=== PATIENT | male | born 1945 | race African-American/Black ===

== ENCOUNTER 2016-07-08 12:59 | Observation (INO) | payer BC ==
[~2016-07-08] VITALS: Ht 190.5 cm; Wt 116.6 kg
[~2016-07-08 12:59] MED LIST: FLUV20CA; LEVPEN; LOSARTAN; METFORMIN; PRED5TAB PO
[2016-07-08] MEDS ORDERED: ONDANSETRON HCL 4MG/2ML VIAL IV STA (13:50)
[2016-07-08] MEDS ORDERED: SODIUM CHLORIDE 0.9% 1,000 ML IV ONE (13:50)
[2016-07-08] MEDS ORDERED: KETOROLAC 30MG/ML VIAL IV STA (13:50)
[2016-07-08 14:18] LABS: BASOPHILS % 0.7 % (0.0-2.0); EOSINOPHILS % 1.1 % (0.0-5.0); HEMATOCRIT. 36.3 % (42.0-52.0); LYMPHOCYTES % 11.7 % (20.0-50.0); MEAN CORPUSCULAR HEMOGLOBIN 28.1 pg (28.0-32.0); MEAN PLATELET VOLUME 8.7 fl (7.4-10.4); MONOCYTES % 5.8 % (2.0-8.0); NEUTROPHILS % 80.7 % (40.0-76.0); PLATELET 188 x1000/uL (130-400); RED BLOOD CELL COUNT 4.27 mill/uL (4.7-6.1); WHITE BLOOD COUNT 9.2 x1000/uL (4.5-11.0)
[2016-07-08 14:25] LABS: PROTHROMBIN TIME 10.8 sec
[2016-07-08 14:27] LABS: ALANINE AMINOTRANSFERASE 15 IU/L (13-61); ALBUMIN 3.4 g/dL (3.4-5.0); ANION GAP 14; CALCIUM 8.4 mg/dL (8.5-10.1); CARBON DIOXIDE 27 mEq/L (21-32); CHLORIDE 106 mEq/L (98-107); INDEX HEMOLYSI 1 (1-3); INDEX ICTERIC 1 (1-4); INDEX LIPEMIC 1 (1-3); LIPASE 172 IU/L (73-393); UREA NITROGEN BLOOD 21 mg/dL (7-21)
[2016-07-08 14:29] LABS: eGFR 36 mL/min (>60)
[2016-07-08 15:54] LABS: CLARITY URINE CLEAR (CLEAR); COLOR URINE YELLOW (YELLOW); GLUCOSE URINE NEGATIVE (NEGATIVE); KETONES URINE NEGATIVE (NEGATIVE); LEUKOCYTE ESTERASE URINE NEGATIVE (NEGATIVE); NITRITE URINE NEGATIVE (NEGATIVE); OCCULT BLOOD URINE NEGATIVE (NEGATIVE); PH URINE 5.5 (4.5-8.0); PROTEIN URINE NEGATIVE (NEGATIVE); UROBILINOGEN URINE 0.2 E.U./dL (0.2-1.0)
[2016-07-08] MEDS ORDERED: LOSA1TAB33 PO (17:46)
[2016-07-08 23:00] VITALS: BP 164/89
[2016-07-08] MEDS ORDERED: PRED5TAB48 PO (23:18)
[2016-07-08] MEDS ORDERED: NIFE30TA94 PO (23:20)
[2016-07-08] MEDS ORDERED: GLIM2TAB2 PO (23:21)
[2016-07-08] MEDS ORDERED: ASPI-1035 PO (23:21)
[2016-07-08] MEDS ORDERED: SITA100T6 PO (23:23)
[2016-07-08] MEDS ORDERED: HUMALOG (23:24)
[2016-07-09] VITALS: BP 159/78
[2016-07-09] MEDS ORDERED: DEXTROSE 50% WATER 50ML SYRINGE IV PRN (00:15)
[2016-07-09] MEDS ORDERED: HYDROCODONE/ACETAMINOPHEN 5/325MG TABLET PO PRN (00:15)
[2016-07-09] MEDS ORDERED: ONDANSETRON HCL 4MG/2ML VIAL IV PRN (00:15)
[2016-07-09] MEDS: LOSARTAN POTASSIUM 50 MG TABLET PO SCH ×2 (00:15→08:39)
[2016-07-09] MEDS ORDERED: SODIUM CHLORIDE 0.45% 1,000 ML IV SCH (00:45)
[2016-07-09] MEDS: SODIUM CHL 0.45% + KCL 20MEQ/L 1,000 ML IV SCH ×2 (02:38→17:11)
[2016-07-09 06:00] VITALS: BP 124/87
[2016-07-09] MEDS: BLOOD SUGAR DIAGNOSTIC STRIP TEST SCH ×4 (06:39→20:38)
[2016-07-09] MEDS: PANTOPRAZOLE 40MG DR TABLET PO SCH (06:39)
[2016-07-09] MEDS: INSULIN LISPRO 100 UNITS/ML SUBCUT SCH ×4 (06:40→21:17)
[2016-07-09 08:12] VITALS: BP 137/91
[2016-07-09] MEDS: ASPIRIN 81MG TABLET PO SCH (08:39)
[2016-07-09] MEDS: ENOXAPARIN 30MG/0.3ML SYR SUBCUT SCH (08:39)
[2016-07-09 11:47] LABS: CALCIUM 8.2 mg/dL (8.5-10.1)
[2016-07-09] MEDS: PREDNISONE 5MG TABLET PO SCH (11:49)
[2016-07-09 12:00] VITALS: BP 139/72
[2016-07-09 16:54] VITALS: BP 148/77
[2016-07-09] MEDS ORDERED: NON FORMULARY PATIENT HOME MED EA XX SCH (18:00)
[2016-07-09 20:00] VITALS: BP 159/88
[2016-07-09] MEDS: NIFEDIPINE XL 30MG TAB PO SCH (21:15)
[2016-07-10] VITALS: BP 149/83
[2016-07-10 04:00] VITALS: BP 115/57
[2016-07-10] MEDS: PANTOPRAZOLE 40MG DR TABLET PO SCH (06:11)
[2016-07-10] MEDS: BLOOD SUGAR DIAGNOSTIC STRIP TEST SCH ×3 (06:11→17:53)
[2016-07-10 07:10] LABS: BASOPHILS % 0.2 % (0.0-2.0); EOSINOPHILS % 2.1 % (0.0-5.0); HEMATOCRIT. 34.5 % (42.0-52.0); HEMOGLOBIN. 11.5 g/dL (14.0-18.0); LYMPHOCYTES % 25.7 % (20.0-50.0); MEAN CORPUSCULAR HEMOGLOBIN 28.3 pg (28.0-32.0); MEAN CORPUSCULAR HGB CONC 33.5 g/dL (31.0-37.0); MEAN CORPUSCULAR VOLUME 84.7 fL (80.0-94.0); MEAN PLATELET VOLUME 8.5 fl (7.4-10.4); MONOCYTES % 6.3 % (2.0-8.0); NEUTROPHILS % 65.7 % (40.0-76.0); PLATELET 224 x1000/uL (130-400); RED BLOOD CELL COUNT 4.08 mill/uL (4.7-6.1); RED CELL DISTRIBUTION WIDTH 13.7 % (11.6-14.6)
[2016-07-10 07:38] LABS: CALCIUM 8.3 mg/dL (8.5-10.1); TROPONIN I 0.02 ng/mL (0.00-0.04)
[2016-07-10] MEDS: INSULIN LISPRO 100 UNITS/ML SUBCUT SCH ×3 (07:38→18:11)
[2016-07-10 07:43] LABS: THYROID STIMULATING HORMONE 1.8 uIU/mL (0.36-3.74)
[2016-07-10 08:00] VITALS: BP 160/97
[2016-07-10] MEDS: ASPIRIN 81MG TABLET PO SCH (08:25)
[2016-07-10] MEDS: NIFEDIPINE XL 30MG TAB PO SCH (08:26)
[2016-07-10] MEDS: ENOXAPARIN 30MG/0.3ML SYR SUBCUT SCH (08:33)
[2016-07-10] MEDS: PREDNISONE 5MG TABLET PO SCH (08:33)
[2016-07-10] MEDS ORDERED: LOSARTAN POTASSIUM 25 MG TABLET PO ONE (09:00)
[2016-07-10] MEDS ORDERED: LOSARTAN POTASSIUM 25 MG TABLET PO SCH (09:00)
[2016-07-10] MEDS ORDERED: HYDROCHLOROTHIAZIDE 12.5MG CAPSULE PO SCH (09:00)
[2016-07-10 11:43] VITALS: BP 141/89
[2016-07-10 12:09] VITALS: BP 141/89
[2016-07-10 16:07] VITALS: BP 137/82
== END 2016-07-10 19:45 | disposition home or self-care (01) ==
LOC: ER 15:14 → 8WST 18:13 → INTOOBSV 18:13
PROVIDERS: ADMIT Internal Medicine; ATTEND Internal Medicine
DX: E86.0 Dehydration (principal); R11.0 Nausea; E86.1 Hypovolemia; I10 Essential (primary) hypertension; E11.9 Type 2 diabetes mellitus without complications; E78.5 Hyperlipidemia, unspecified; D86.9 Sarcoidosis, unspecified; N17.9 Acute kidney failure, unspecified
CPT/HCPCS: 36415; 74176; 76770; 80048; 80053; 81003; 82962; 83690; 84443; 84484; 85025; 85610; 93005; 96361; 96372; 96374; 96375; 99285; G0378; J1650; J1815; J1885; J2405; J3480; J7030; J7512

== ENCOUNTER 2019-03-18 12:19 | Inpatient (IN) | payer BC ==
[~2019-03-18] VITALS: Ht 190.5 cm; Wt 80.8 kg
[~2019-03-18 12:19] MED LIST changes: +ASPI-1497 PO; -FLUV20CA; +GLIM2TAB30 PO; +HUMALOG; -LEVPEN; -LOSARTAN; -METFORMIN; +NIFE30TA94 PO; -PRED5TAB PO; +PRED5TAB48 PO; +SITA100T11 PO
[2019-03-18 13:17] LABS: CHLORIDE 110 mEq/L (98-107)
[2019-03-18 13:18] LABS: BASOPHILS % 0.5 % (0.0-2.0); EOSINOPHILS % 0.3 % (0.0-5.0); HEMATOCRIT. 37.9 % (42.0-52.0); HEMOGLOBIN. 12.5 g/dL (14.0-18.0); LYMPHOCYTES % 8.5 % (20.0-50.0); MEAN CORPUSCULAR HEMOGLOBIN 28.4 pg (28.0-32.0); MEAN CORPUSCULAR VOLUME 86.1 fL (80.0-94.0); MEAN PLATELET VOLUME 9.2 fl (7.4-10.4); MONOCYTES % 3.9 % (2.0-8.0); NEUTROPHILS % 86.8 % (40.0-76.0); PLATELET 212 x1000/uL (130-400); RED BLOOD CELL COUNT 4.41 mill/uL (4.7-6.1); RED CELL DISTRIBUTION WIDTH 14.5 % (11.6-14.6)
[2019-03-18 13:20] LABS: ETHANOL BLOOD < 10 mg/dL
[2019-03-18 13:24] LABS: LDL CHOLESTEROL 110 mg/dL (5-100)
[2019-03-18 13:27] LABS: INR 1.1
[2019-03-18] MEDS ORDERED: CLOPIDOGREL 75MG TABLET PO SCH (15:00)
[2019-03-18] MEDS ORDERED: CLONIDINE 0.1MG TABLET PO PRN (15:45)
[2019-03-18] MEDS ORDERED: HYDROCODONE/ACETAMINOPHEN 5/325MG TABLET PO PRN (15:45)
[2019-03-18] MEDS ORDERED: ONDANSETRON HCL 4MG/2ML INJ IV PRN (15:45)
[2019-03-18] MEDS ORDERED: IPRATROPIUM/ALBUTEROL 0.5-3(2.5)MG/3ML NEB HHN PRN (15:45)
[2019-03-18] MEDS ORDERED: ACETAMINOPHEN 325MG TABLET PO PRN (15:45)
[2019-03-18] MEDS ORDERED: NITROGLYCERIN OINT 1GM/INCH UDPKT TD NR (18:45)
[2019-03-18] MEDS ORDERED: METOPROLOL TARTRATE 25MG TABLET PO NR (19:00)
[2019-03-18 22:31] VITALS: BP 160/80
[2019-03-19] MEDS: ATORVASTATIN CALCIUM 10MG TABLET PO SCH ×2 (00:33→21:50)
[2019-03-19] MEDS: NITROGLYCERIN OINT 1GM/INCH UDPKT TD SCH ×2 (00:33→06:48)
[2019-03-19] MEDS ORDERED: INSU100V3 SUBCUT (01:25)
[2019-03-19 04:00] VITALS: BP_SYST 142; BP_SYST 159; BP_DIAS 83; BP_DIAS 93
[2019-03-19 08:00] VITALS: BP 163/88
[2019-03-19 08:36] LABS: BASOPHILS % 0.9 % (0.0-2.0); EOSINOPHILS % 2.2 % (0.0-5.0); HEMATOCRIT. 34.7 % (42.0-52.0); HEMOGLOBIN. 11.2 g/dL (14.0-18.0); LYMPHOCYTES % 27.4 % (20.0-50.0); MEAN CORPUSCULAR HEMOGLOBIN 27.8 pg (28.0-32.0); MEAN CORPUSCULAR VOLUME 86.1 fL (80.0-94.0); MONOCYTES % 6.6 % (2.0-8.0); NEUTROPHILS % 62.9 % (40.0-76.0); PLATELET 202 x1000/uL (130-400); RED BLOOD CELL COUNT 4.02 mill/uL (4.7-6.1); RED CELL DISTRIBUTION WIDTH 14.1 % (11.6-14.6)
[2019-03-19 08:37] LABS: CHLORIDE 110 mEq/L (98-107)
[2019-03-19 08:49] LABS: CREATINE KINASE 96 IU/L (39-308); LDL CHOLESTEROL 100 mg/dL (5-100)
[2019-03-19 08:50] LABS: HDL CHOLESTEROL 68 mg/dL (40-59)
[2019-03-19] MEDS ORDERED: METOPROLOL TARTRATE 25MG TABLET PO SCH (09:00)
[2019-03-19] MEDS: ENOXAPARIN 30MG/0.3ML SYR SUBCUT SCH ×2 (09:47→21:50)
[2019-03-19] MEDS: ASPIRIN 81MG EC TABLET PO SCH (09:48)
[2019-03-19] MEDS: CLOPIDOGREL 75MG TABLET PO SCH (09:48)
[2019-03-19] MEDS: DOCUSATE SODIUM 100MG CAPSULE PO SCH ×2 (09:57→17:12)
[2019-03-19 12:00] VITALS: BP 144/66
[2019-03-19] MEDS: LOSARTAN POTASSIUM 50 MG TABLET PO SCH (12:42)
[2019-03-19] MEDS ORDERED: DEXTROSE 50% WATER 50ML SYRINGE IV PRN (13:45)
[2019-03-19 16:00] VITALS: BP 139/80
[2019-03-19] MEDS: BLOOD SUGAR DIAGNOSTIC STRIP TEST SCH ×2 (17:45→21:11)
[2019-03-19] MEDS: INSULIN LISPRO 100 UNITS/ML SUBCUT SCH ×2 (18:07→21:52)
[2019-03-19 20:00] VITALS: BP 145/73
[2019-03-19] MEDS: METOPROLOL TARTRATE 50MG TABLET PO SCH (21:50)
[2019-03-20] VITALS: BP 132/75
[2019-03-20] LABS: BG BASE EXCESS -4.3 mmol/L (-2.0-2.0); BG CARBOXYHEMOGLOBIN 0.3 % (0.5-1.5); BG DEOXYHEMOGLOBIN 2.2 % (0.0-5.0); BG FRACTION INSPIRED OXYGEN 32; BG HCO3 ACT 19.3 mmol/L (22.0-26.0); BG METHEMOGLOBIN 0.3 % (0.0-1.5); BG OXYGEN SATURATION 97.8 % (92.0-98.5); BG OXYHEMOGLOBIN 97.2 % (94.0-97.0); BG PCO2 30.8 mmHg (35.0-45.0); BG PH 7.414 (7.350-7.450); BG PO2 113.7 mmHg (75.0-100.0); BG SAMPLE SITE RIGHT RADIAL; BG TOTAL HEMOGLOBIN 11.8 g/dL (12.0-18.0); BG VENT MODE NASAL CANNULA
[2019-03-20 04:00] VITALS: BP 131/78
[2019-03-20] MEDS: BLOOD SUGAR DIAGNOSTIC STRIP TEST SCH ×4 (06:28→20:57)
[2019-03-20] MEDS: INSULIN LISPRO 100 UNITS/ML SUBCUT SCH ×4 (06:33→20:55)
[2019-03-20 08:00] VITALS: BP 143/73
[2019-03-20 08:12] LABS: BASOPHILS % 0.4 % (0.0-2.0); EOSINOPHILS % 1.9 % (0.0-5.0); HEMATOCRIT. 35.1 % (42.0-52.0); HEMOGLOBIN. 11.6 g/dL (14.0-18.0); LYMPHOCYTES % 20.2 % (20.0-50.0); MEAN CORPUSCULAR HEMOGLOBIN 28.3 pg (28.0-32.0); MEAN CORPUSCULAR VOLUME 85.7 fL (80.0-94.0); MONOCYTES % 6.2 % (2.0-8.0); NEUTROPHILS % 71.3 % (40.0-76.0); PLATELET 201 x1000/uL (130-400); RED CELL DISTRIBUTION WIDTH 14.1 % (11.6-14.6)
[2019-03-20 08:53] LABS: CHLORIDE 110 mEq/L (98-107)
[2019-03-20] MEDS: CLOPIDOGREL 75MG TABLET PO SCH (10:03)
[2019-03-20] MEDS: METOPROLOL TARTRATE 50MG TABLET PO SCH ×2 (10:03→20:56)
[2019-03-20] MEDS: DOCUSATE SODIUM 100MG CAPSULE PO SCH ×2 (10:03→17:39)
[2019-03-20] MEDS: LOSARTAN POTASSIUM 50 MG TABLET PO SCH ×2 (10:03→20:56)
[2019-03-20] MEDS: ASPIRIN 81MG EC TABLET PO SCH (10:03)
[2019-03-20] MEDS: ENOXAPARIN 30MG/0.3ML SYR SUBCUT SCH (10:04)
[2019-03-20 12:00] VITALS: BP 122/59
[2019-03-20 16:00] VITALS: BP 122/63
[2019-03-20] MEDS: ATORVASTATIN CALCIUM 20MG TABLET PO SCH (20:57)
[2019-03-20] MEDS: AMLODIPINE 5MG TABLET PO SCH (20:57)
[2019-03-21] VITALS (14 sets, daily range): BP systolic 107–154; BP diastolic 53–83
[2019-03-21] MEDS: SODIUM CHLORIDE 0.45% 1,000 ML IV SCH
[2019-03-21 06:41] LABS: BASOPHILS % 0.6 % (0.0-2.0); EOSINOPHILS % 2.5 % (0.0-5.0); HEMATOCRIT. 36.6 % (42.0-52.0); HEMOGLOBIN. 12.1 g/dL (14.0-18.0); LYMPHOCYTES % 20.7 % (20.0-50.0); MEAN CORPUSCULAR HEMOGLOBIN 28.4 pg (28.0-32.0); MEAN CORPUSCULAR VOLUME 85.7 fL (80.0-94.0); MEAN PLATELET VOLUME 9.2 fl (7.4-10.4); MONOCYTES % 6.5 % (2.0-8.0); NEUTROPHILS % 69.7 % (40.0-76.0); PLATELET 206 x1000/uL (130-400); RED BLOOD CELL COUNT 4.27 mill/uL (4.7-6.1); RED CELL DISTRIBUTION WIDTH 14.2 % (11.6-14.6)
[2019-03-21] MEDS: BLOOD SUGAR DIAGNOSTIC STRIP TEST SCH ×4 (06:58→21:29)
[2019-03-21 07:00] LABS: CHLORIDE 109 mEq/L (98-107)
[2019-03-21] MEDS: ASPIRIN 81MG EC TABLET PO SCH (08:00)
[2019-03-21] MEDS: CLOPIDOGREL 75MG TABLET PO SCH (09:00)
[2019-03-21] MEDS: METOPROLOL TARTRATE 50MG TABLET PO SCH ×2 (09:01→21:45)
[2019-03-21] MEDS: DOCUSATE SODIUM 100MG CAPSULE PO SCH ×2 (09:01→18:32)
[2019-03-21] MEDS: LOSARTAN POTASSIUM 50 MG TABLET PO SCH ×2 (09:01→21:44)
[2019-03-21] MEDS: INSULIN LISPRO 100 UNITS/ML SUBCUT SCH ×4 (09:02→21:46)
[2019-03-21] MEDS: AMLODIPINE 5MG TABLET PO SCH ×2 (09:02→21:44)
[2019-03-21] MEDS ORDERED: HEPARIN SODIUM 1,000 UNIT/1ML VIAL IV ONE (09:32)
[2019-03-21] MEDS ORDERED: NICARDIPINE 100MCG/ML 10ML VIAL (CATH LAB) IV ONE (09:32)
[2019-03-21] MEDS ORDERED: NITROGLYCERIN 50MCG/ML 10ML VIAL (CATH LAB) IV ONE (09:32)
[2019-03-21] MEDS ORDERED: LIDOCAINE HCL 1% 20ML VIAL (Pyxis) INJ ONE (13:45)
[2019-03-21] MEDS ORDERED: FENTANYL CITRATE/PF 50MCG/ML 2ML VIAL ONE (13:45)
[2019-03-21] MEDS ORDERED: MIDAZOLAM HCL 2 MG/2 ML VIAL ONE (13:45)
[2019-03-21] MEDS ORDERED: IODIXANOL 320MG/ML 100 ML BOTTLE IV ONE ×2 (13:46→15:02)
[2019-03-21] MEDS ORDERED: IOHEXOL-300 100 ML BOTTLE ONE (14:53)
[2019-03-21] MEDS ORDERED: CLOPIDOGREL 75MG TABLET ONE (15:15)
[2019-03-21] MEDS ORDERED: ASPIRIN 325MG EC TABLET PO ONE (15:15)
[2019-03-21] MEDS ORDERED: ATROPINE SULFATE 1MG/10ML SYR IV PRN (15:45)
[2019-03-21] MEDS ORDERED: ACETAMINOPHEN 325MG TABLET PO PRN (15:45)
[2019-03-21] MEDS: ATORVASTATIN CALCIUM 20MG TABLET PO SCH (21:44)
[2019-03-22] VITALS (11 sets, daily range): BP systolic 116–158; BP diastolic 60–90
[2019-03-22] MEDS: SODIUM CHLORIDE 0.45% 1,000 ML IV SCH (00:48)
[2019-03-22] MEDS: BLOOD SUGAR DIAGNOSTIC STRIP TEST SCH ×2 (06:02→11:33)
[2019-03-22 06:20] LABS: BASOPHILS % 0.6 % (0.0-2.0); EOSINOPHILS % 2.9 % (0.0-5.0); HEMATOCRIT. 36.2 % (42.0-52.0); HEMOGLOBIN. 12.1 g/dL (14.0-18.0); LYMPHOCYTES % 12.5 % (20.0-50.0); MEAN CORPUSCULAR HEMOGLOBIN 28.3 pg (28.0-32.0); MEAN CORPUSCULAR VOLUME 84.9 fL (80.0-94.0); MONOCYTES % 6.2 % (2.0-8.0); NEUTROPHILS % 77.8 % (40.0-76.0); PLATELET 209 x1000/uL (130-400); RED BLOOD CELL COUNT 4.26 mill/uL (4.7-6.1); RED CELL DISTRIBUTION WIDTH 14.4 % (11.6-14.6)
[2019-03-22 06:59] LABS: CHLORIDE 108 mEq/L (98-107)
[2019-03-22] MEDS: INSULIN LISPRO 100 UNITS/ML SUBCUT SCH ×2 (08:30→13:08)
[2019-03-22] MEDS: DOCUSATE SODIUM 100MG CAPSULE PO SCH (08:32)
[2019-03-22] MEDS: AMLODIPINE 5MG TABLET PO SCH (08:33)
[2019-03-22] MEDS: METOPROLOL TARTRATE 50MG TABLET PO SCH (08:33)
[2019-03-22] MEDS: LOSARTAN POTASSIUM 50 MG TABLET PO SCH (08:35)
[2019-03-22] MEDS ORDERED: ASPIRIN 325MG TABLET PO SCH (09:00)
[2019-03-22] MEDS ORDERED: CLOPIDOGREL 75MG TABLET PO SCH (09:00)
[2019-03-22] MEDS ORDERED: METO-539 MT (12:26)
[2019-03-22] MEDS ORDERED: CLOP75TA4 MT (12:26)
[2019-03-22] MEDS ORDERED: ATOR20TA MT (12:26)
[2019-03-22] MEDS ORDERED: LOSA50TA3 MT (12:26)
[2019-03-22] MEDS ORDERED: AMLO5TAB4 MT (12:26)
== END 2019-03-22 16:20 | disposition home or self-care (01) | DRG 246 ==
LOC: ER 12:19 → 7WST 14:15 → EDBEDREQ 14:24 → EDBEDREQSVC 14:24 → ENRESERV 21:30 → 3WST 03-21 16:25
PROVIDERS: ADMIT Internal Medicine; ATTEND Internal Medicine
PROC: 4A023N7 Measurement of Cardiac Sampling and Pressure, Left Heart, Percutaneous Approach (ICD-10-PCS; principal; 2019-03-21)
PROC: 027034Z Dilation of Coronary Artery, One Artery with Drug-eluting Intraluminal Device, Percutaneous Approach (ICD-10-PCS; 2019-03-21)
PROC: B211YZZ Fluoroscopy of Multiple Coronary Arteries using Other Contrast (ICD-10-PCS; 2019-03-21)
PROC: B215YZZ Fluoroscopy of Left Heart using Other Contrast (ICD-10-PCS; 2019-03-21)
DX: I21.4 Non-ST elevation (NSTEMI) myocardial infarction (principal); G93.41 Metabolic encephalopathy; R47.01 Aphasia; I13.0 Hypertensive heart and chronic kidney disease with heart failure and stage 1 through stage 4 chronic kidney disease, or unspecified chronic kidney disease; E11.649 Type 2 diabetes mellitus with hypoglycemia without coma; D86.0 Sarcoidosis of lung; I25.5 Ischemic cardiomyopathy; I25.10 Atherosclerotic heart disease of native coronary artery without angina pectoris; I34.0 Nonrheumatic mitral (valve) insufficiency; G90.8 Other disorders of autonomic nervous system; E11.65 Type 2 diabetes mellitus with hyperglycemia; I50.9 Heart failure, unspecified; E11.22 Type 2 diabetes mellitus with diabetic chronic kidney disease; E78.5 Hyperlipidemia, unspecified; N18.9 Chronic kidney disease, unspecified; Z79.82 Long term (current) use of aspirin; Z79.02 Long term (current) use of antithrombotics/antiplatelets; Z79.52 Long term (current) use of systemic steroids; Z86.73 Personal history of transient ischemic attack (TIA), and cerebral infarction without residual deficits; Z79.899 Other long term (current) drug therapy; Z79.4 Long term (current) use of insulin; Z90.49 Acquired absence of other specified parts of digestive tract
CPT/HCPCS: 36415; 36600; 70551; 71045; 80048; 80053; 80061; 80320; 82140; 82375; 82550; 82805; 82962; 83036; 83721; 83735; 84484; 85025; 85347; 92928; 93005; 93306; 93458; 93880; 97162; 97164; 97530; 99291; C1760; C1769; C1874; C1887; C1893; J1644; J1650; J1815; J2250; J3010; J3490; Q9967; G0480

== ENCOUNTER 2019-06-19 14:31 | Inpatient (IN) | payer BC ==
[~2019-06-19] VITALS: Ht 188 cm; Wt 108.6 kg
[~2019-06-19 14:31] MED LIST changes: +AMLO5TAB4 MT; +ATOR20TA MT; +CLOP75TA4 MT; -GLIM2TAB30 PO; -HUMALOG; +INSU100V3 SUBCUT; +LOSA50TA3 MT; +METO-539 MT
[2019-06-19] MEDS ORDERED: CALCIUM GLUCONATE 100MG/ML 10ML VIAL IV ONE (14:45)
[2019-06-19] MEDS ORDERED: MAGNESIUM 2 G PREMIX 50 ML IV ONE (14:45)
[2019-06-19] MEDS ORDERED: ADENOSINE 3 MG/ML 2ML VIAL IV ONE (15:07)
[2019-06-19 15:26] LABS: BASOPHILS % 0.4 % (0.0-2.0); CHLORIDE 114 mEq/L (98-107); EOSINOPHILS % 0.3 % (0.0-5.0); LYMPHOCYTES % 14.7 % (20.0-50.0); MEAN CORPUSCULAR HEMOGLOBIN 28.7 pg (28.0-32.0); MEAN CORPUSCULAR VOLUME 89.4 fL (80.0-94.0); MEAN PLATELET VOLUME 9.6 fl (7.4-10.4); MONOCYTES % 4.9 % (2.0-8.0); NEUTROPHILS % 79.7 % (40.0-76.0); PLATELET 201 x1000/uL (130-400); RED BLOOD CELL COUNT 2.24 mill/uL (4.7-6.1); RED CELL DISTRIBUTION WIDTH 14.7 % (11.6-14.6)
[2019-06-19] MEDS ORDERED: METOPROLOL TARTRATE 5MG/5ML VIAL IV ONE (15:30)
[2019-06-19] MEDS ORDERED: SODIUM CHLORIDE 0.9% 250 ML IV ONE (15:30)
[2019-06-19 15:33] LABS: INR 1.1; PARTIAL THROMBOPLASTIN TIME 21.5 sec (23.4-31.0); PROTHROMBIN TIME 11.8 sec (9.6-11.0)
[2019-06-19] MEDS ORDERED: VANCOMYCIN 1 G PREMIX 200 ML IV SCH (15:45)
[2019-06-19] MEDS ORDERED: PIPERACILLIN/TAZOBACTAM 3.375GM/50ML PREMIX IV ONE (15:45)
[2019-06-19 15:46] LABS: HEMOGLOBIN. 6.4 g/dL (14.0-18.0)
[2019-06-19 15:47] LABS: HEMATOCRIT. 20.1 % (42.0-52.0)
[2019-06-19] MEDS ORDERED: METOPROLOL TARTRATE 50MG TABLET PO ONE (16:00)
[2019-06-19] MEDS: PIPERACILLIN/TAZ 3.375G PREMIX 50 ML IV NR ×2 (16:13→16:43)
[2019-06-19] MEDS ORDERED: NOREPINEPHRINE 4MG/250ML PMX 250 ML IV ONE (17:43)
[2019-06-19] MEDS ORDERED: ESMOLOL 2500MG PREMIX 250 ML IV ONE ×2 (18:15→18:30)
[2019-06-19] MEDS ORDERED: NOREPINEPHRINE 4 MG in DEXT 5% WATER 246 ML IV ONE (18:15)
[2019-06-19] MEDS ORDERED: IOHEXOL-350 100 ML BOTTLE ONE (19:26)
[2019-06-19] MEDS ORDERED: ONDANSETRON HCL 4MG/2ML INJ IV PRN (20:54)
[2019-06-19 21:04] LABS: CLARITY URINE CLEAR (CLEAR); COLOR URINE YELLOW (YELLOW); KETONES URINE 1+ (NEGATIVE); LEUKOCYTE ESTERASE URINE NEGATIVE (NEGATIVE); NITRITE URINE NEGATIVE (NEGATIVE); OCCULT BLOOD URINE NEGATIVE (NEGATIVE); PROTEIN URINE NEGATIVE (NEGATIVE); SPECIFIC GRAVITY URINE 1.048 (1.005-1.030); UROBILINOGEN URINE 0.2 E.U./dL (0.2-1.0)
[2019-06-19 22:45] VITALS: BP 96/59
[2019-06-19 23:00] VITALS: BP 92/57
[2019-06-19 23:15] VITALS: BP 83/52
[2019-06-19] MEDS ORDERED: DEXTROSE 50% WATER 50ML SYRINGE IV PRN (23:15)
[2019-06-19 23:30] VITALS: BP 104/57
[2019-06-19] MEDS ORDERED: NOREPINEPHRINE 32 MG in DEXT 5% WATER 468 ML IV PRN (23:30)
[2019-06-19 23:45] VITALS: BP 122/69
[2019-06-19 23:48] VITALS: BP 93/74
[2019-06-20] VITALS (127 sets, daily range): BP systolic 56–144; BP diastolic 29–78
[2019-06-20] MEDS ORDERED: FUROSEMIDE 40MG/4ML VIAL IVP NR
[2019-06-20] MEDS: BLOOD SUGAR DIAGNOSTIC STRIP TEST SCH ×4 (00:33→18:10)
[2019-06-20] MEDS: PANTOPRAZOLE 80 MG in SODIUM CHLORIDE 0.9% 100 ML IV SCH ×2 (00:35→09:34)
[2019-06-20] MEDS: ESMOLOL 2500MG PREMIX 250 ML IV PRN ×4 (00:37→22:17)
[2019-06-20 01:11] LABS: HEMATOCRIT 22.4 % (42.0-52.0); HEMOGLOBIN 7.3 g/dL (14.0-18.0)
[2019-06-20 01:26] LABS: CREATINE KINASE MB FRACTION 264.1 ng/mL (0.5-3.6)
[2019-06-20] MEDS: INSULIN LISPRO 100 UNITS/ML SUBCUT SCH ×6 (05:19→21:47)
[2019-06-20 05:43] LABS: HEMATOCRIT. 26.4 % (42.0-52.0); HEMOGLOBIN. 8.7 g/dL (14.0-18.0); MEAN CORPUSCULAR HEMOGLOBIN 28.9 pg (28.0-32.0); MEAN CORPUSCULAR VOLUME 87.5 fL (80.0-94.0); MEAN PLATELET VOLUME 9.9 fl (7.4-10.4); PLATELET 169 x1000/uL (130-400); RED BLOOD CELL COUNT 3.02 mill/uL (4.7-6.1); RED CELL DISTRIBUTION WIDTH 14.3 % (11.6-14.6)
[2019-06-20 06:34] LABS: CHLORIDE 112 mEq/L (98-107)
[2019-06-20 06:44] LABS: LDL CHOLESTEROL 34 mg/dL (5-100)
[2019-06-20 06:47] LABS: HDL CHOLESTEROL 38 mg/dL (40-59)
[2019-06-20 09:47] LABS: HEMATOCRIT 26.1 % (42.0-52.0); HEMOGLOBIN 8.7 g/dL (14.0-18.0)
[2019-06-20 10:44] LABS: CREATINE KINASE MB FRACTION 489.8 ng/mL (0.5-3.6)
[2019-06-20 12:29] LABS: PLATELET ESTIMATE NORMAL
[2019-06-20] MEDS ORDERED: ACETAMINOPHEN 325MG TABLET PO PRN (13:45)
[2019-06-20] MEDS ORDERED: ACETAMINOPHEN 650MG SUPP PR PRN (13:45)
[2019-06-20] MEDS ORDERED: DIPHENHYDRAMINE 50MG/ML VIAL IV PRN (13:45)
[2019-06-20 14:01] LABS: BG BASE EXCESS -8.8 mmol/L (-2.0-2.0); BG CARBOXYHEMOGLOBIN 0.3 % (0.5-1.5); BG DEOXYHEMOGLOBIN 1.7 % (0.0-5.0); BG FRACTION INSPIRED OXYGEN 32; BG HCO3 ACT 13.8 mmol/L (22.0-26.0); BG METHEMOGLOBIN 0.3 % (0.0-1.5); BG OXYGEN SATURATION 98.3 % (92.0-98.5); BG OXYHEMOGLOBIN 97.7 % (94.0-97.0); BG PCO2 19.9 mmHg (35.0-45.0); BG PH 7.458 (7.350-7.450); BG PO2 123.4 mmHg (75.0-100.0); BG SAMPLE SITE RIGHT RADIAL; BG VENT MODE NASAL CANNULA
[2019-06-20] MEDS: SODIUM CHLORIDE 0.45% 1,000 ML IV SCH (14:31)
[2019-06-20] MEDS: PIPERACILLIN/TAZOBACTAM 2.25 G in DEXTROSE 5% WATER 50 ML IV SCH ×2 (15:34→21:46)
[2019-06-20] MEDS: PHENYLEPHRINE 40 MG in DEXT 5% WATER 496 ML IV PRN ×2 (15:35→22:38)
[2019-06-20 17:03] LABS: HEMATOCRIT 23.9 % (42.0-52.0)
[2019-06-20 17:16] LABS: D-DIMER 3.63 mg/L FEU (<0.50); INR 1.2; PARTIAL THROMBOPLASTIN TIME 26.3 sec (23.4-31.0); PROTHROMBIN TIME 12.7 sec (9.6-11.0)
[2019-06-20 17:20] LABS: TOTAL IRON BINDING CAPACITY 280 ug/dL (250-450)
[2019-06-20 17:43] LABS: CREATINE KINASE MB FRACTION 378.2 ng/mL (0.5-3.6)
[2019-06-20] MEDS: SUCRALFATE 1 G/10 ML UDC PO SCH ×2 (18:10→21:46)
[2019-06-20] MEDS: MIDODRINE HCL 5MG TABLET PO SCH (18:10)
[2019-06-20] MEDS ORDERED: VANCOMYCIN 500 MG PREMIX 100 ML IV NR (20:00)
[2019-06-20] MEDS ORDERED: NOREPINEPHRINE 32 MG in DEXT 5% WATER 468 ML IV PRN (20:30)
[2019-06-20] MEDS: ALBUMIN HUMAN 25GM/500ML (5%) IV NR ×2 (21:26→21:37)
[2019-06-20] MEDS: PANTOPRAZOLE SODIUM 40 MG/VIAL IV SCH (21:46)
[2019-06-20 22:24] LABS: HEMATOCRIT 22.1 % (42.0-52.0); HEMOGLOBIN 7.4 g/dL (14.0-18.0)
[2019-06-21] VITALS (82 sets, daily range): BP systolic 67–123; BP diastolic 24–65
[2019-06-21] MEDS: PIPERACILLIN/TAZOBACTAM 2.25 G in DEXTROSE 5% WATER 50 ML IV SCH (04:35)
[2019-06-21] MEDS: PHENYLEPHRINE 40 MG in DEXT 5% WATER 246 ML IV PRN ×4 (05:12→22:50)
[2019-06-21 05:35] LABS: BASOPHILS % 0.3 % (0.0-2.0); EOSINOPHILS % 0.7 % (0.0-5.0); HEMATOCRIT. 26.3 % (42.0-52.0); HEMOGLOBIN. 8.9 g/dL (14.0-18.0); LYMPHOCYTES % 8.1 % (20.0-50.0); MEAN CORPUSCULAR HEMOGLOBIN 30.1 pg (28.0-32.0); MEAN PLATELET VOLUME 10.1 fl (7.4-10.4); NEUTROPHILS % 85.9 % (40.0-76.0); PLATELET 132 x1000/uL (130-400); RED BLOOD CELL COUNT 2.96 mill/uL (4.7-6.1); RED CELL DISTRIBUTION WIDTH 14.6 % (11.6-14.6)
[2019-06-21] MEDS: SUCRALFATE 1 G/10 ML UDC PO SCH ×4 (07:50→20:45)
[2019-06-21] MEDS: INSULIN LISPRO 100 UNITS/ML SUBCUT SCH ×4 (08:20→20:52)
[2019-06-21] MEDS: BLOOD SUGAR DIAGNOSTIC STRIP TEST SCH ×4 (08:37→20:45)
[2019-06-21] MEDS ORDERED: METOCLOPRAMIDE HCL 10MG/2ML VIAL IV SCH (09:00)
[2019-06-21] MEDS: MIDODRINE HCL 5MG TABLET PO SCH ×3 (09:54→18:11)
[2019-06-21] MEDS: SODIUM CHLORIDE 0.45% 1,000 ML IV SCH (09:54)
[2019-06-21] MEDS: PANTOPRAZOLE SODIUM 40 MG/VIAL IV SCH ×2 (11:07→20:51)
[2019-06-21] MEDS: VANCOMYCIN 1500MG in DEXTROSE 5% WATER 250ML IV SCH (11:07)
[2019-06-21] MEDS: PIPERACILLIN/TAZOBACTAM 3.375 G in DEXT 5% WATER 100 ML IV SCH ×3 (11:08→23:56)
[2019-06-21 12:02] LABS: BG BASE EXCESS -9.1 mmol/L (-2.0-2.0); BG CARBOXYHEMOGLOBIN 0.3 % (0.5-1.5); BG DEOXYHEMOGLOBIN 5.4 % (0.0-5.0); BG HCO3 ACT 14.9 mmol/L (22.0-26.0); BG METHEMOGLOBIN 0.3 % (0.0-1.5); BG OXYGEN SATURATION 94.6 % (92.0-98.5); BG PCO2 25.8 mmHg (35.0-45.0); BG PH 7.379 (7.350-7.450); BG PO2 77.6 mmHg (75.0-100.0); BG SAMPLE SITE RIGHT BRACHIAL; BG TOTAL HEMOGLOBIN 8.6 g/dL (12.0-18.0); BG VENT MODE ROOM AIR
[2019-06-21] MEDS: MORPHINE SULFATE 2 MG/ML CPJ (NOT FOR IM USE) IV PRN (19:39)
[2019-06-22] VITALS (93 sets, daily range): BP systolic 87–119; BP diastolic 47–73
[2019-06-22] MEDS: MORPHINE SULFATE 2 MG/ML CPJ (NOT FOR IM USE) IV PRN (01:40)
[2019-06-22] MEDS: IPRATROPIUM/ALBUTEROL 0.5-3(2.5)MG/3ML NEB HHN PRN (02:43)
[2019-06-22] MEDS: PIPERACILLIN/TAZOBACTAM 3.375 G in DEXT 5% WATER 100 ML IV SCH ×3 (05:42→18:18)
[2019-06-22] MEDS: SODIUM CHLORIDE 0.45% 1,000 ML IV SCH (05:42)
[2019-06-22] MEDS: PHENYLEPHRINE 40 MG in DEXT 5% WATER 246 ML IV PRN (05:43)
[2019-06-22 06:16] LABS: BASOPHILS % 0.3 % (0.0-2.0); EOSINOPHILS % 2.2 % (0.0-5.0); HEMATOCRIT. 23.5 % (42.0-52.0); LYMPHOCYTES % 9.1 % (20.0-50.0); MEAN CORPUSCULAR HEMOGLOBIN 30.8 pg (28.0-32.0); MEAN PLATELET VOLUME 10.1 fl (7.4-10.4); MONOCYTES % 5.8 % (2.0-8.0); NEUTROPHILS % 82.6 % (40.0-76.0); PLATELET 118 x1000/uL (130-400); RED BLOOD CELL COUNT 2.58 mill/uL (4.7-6.1); RED CELL DISTRIBUTION WIDTH 14.5 % (11.6-14.6)
[2019-06-22] MEDS: SUCRALFATE 1 G/10 ML UDC PO SCH ×4 (07:50→20:49)
[2019-06-22] MEDS: BLOOD SUGAR DIAGNOSTIC STRIP TEST SCH ×4 (07:50→20:33)
[2019-06-22] MEDS: MIDODRINE HCL 5MG TABLET PO SCH ×3 (09:00→18:18)
[2019-06-22] MEDS: PANTOPRAZOLE SODIUM 40 MG/VIAL IV SCH ×2 (09:00→20:49)
[2019-06-22] MEDS: VANCOMYCIN 1500MG in DEXTROSE 5% WATER 250ML IV SCH (09:01)
[2019-06-22] MEDS: INSULIN LISPRO 100 UNITS/ML SUBCUT SCH ×4 (09:02→20:49)
[2019-06-22 16:18] LABS: BG BASE EXCESS -6.2 mmol/L (-2.0-2.0); BG CARBOXYHEMOGLOBIN 0.3 % (0.5-1.5); BG FRACTION INSPIRED OXYGEN 21; BG HCO3 ACT 16.6 mmol/L (22.0-26.0); BG METHEMOGLOBIN 0.1 % (0.0-1.5); BG OXYHEMOGLOBIN 92.6 % (94.0-97.0); BG PH 7.457 (7.350-7.450); BG PO2 63.3 mmHg (75.0-100.0); BG SAMPLE SITE RIGHT RADIAL; BG VENT MODE ROOM AIR
[2019-06-23] VITALS (49 sets, daily range): BP systolic 76–117; BP diastolic 37–75
[2019-06-23] MEDS: PIPERACILLIN/TAZOBACTAM 3.375 G in DEXT 5% WATER 100 ML IV SCH ×5 (00:39→23:16)
[2019-06-23] MEDS: SODIUM CHLORIDE 0.45% 1,000 ML IV SCH ×2 (02:25→20:45)
[2019-06-23 05:53] LABS: BASOPHILS % 0.2 % (0.0-2.0); HEMATOCRIT. 24.5 % (42.0-52.0); HEMOGLOBIN. 8.4 g/dL (14.0-18.0); LYMPHOCYTES % 7.1 % (20.0-50.0); MEAN CORPUSCULAR HEMOGLOBIN 30.5 pg (28.0-32.0); MEAN CORPUSCULAR VOLUME 89.6 fL (80.0-94.0); MEAN PLATELET VOLUME 10.2 fl (7.4-10.4); MONOCYTES % 4.2 % (2.0-8.0); NEUTROPHILS % 87.5 % (40.0-76.0); PLATELET 125 x1000/uL (130-400); RED BLOOD CELL COUNT 2.74 mill/uL (4.7-6.1); RED CELL DISTRIBUTION WIDTH 14.6 % (11.6-14.6)
[2019-06-23] MEDS: BLOOD SUGAR DIAGNOSTIC STRIP TEST SCH ×4 (07:50→20:30)
[2019-06-23] MEDS: INSULIN LISPRO 100 UNITS/ML SUBCUT SCH ×4 (08:10→20:29)
[2019-06-23] MEDS: VANCOMYCIN 1500MG in DEXTROSE 5% WATER 250ML IV SCH (08:10)
[2019-06-23] MEDS: SUCRALFATE 1 G/10 ML UDC PO SCH ×4 (08:11→20:29)
[2019-06-23] MEDS: PANTOPRAZOLE SODIUM 40 MG/VIAL IV SCH ×2 (08:11→20:30)
[2019-06-23] MEDS: MIDODRINE HCL 5MG TABLET PO SCH ×3 (08:11→18:08)
[2019-06-23] MEDS: CARVEDILOL 3.125 MG TABLET PO SCH ×2 (09:44→20:30)
[2019-06-23] MEDS: CLOPIDOGREL 75MG TABLET PO SCH (09:44)
[2019-06-23] MEDS: MORPHINE SULFATE 2 MG/ML CPJ (NOT FOR IM USE) IV PRN (23:36)
[2019-06-24] VITALS (13 sets, daily range): BP systolic 92–111; BP diastolic 47–64
[2019-06-24] MEDS: IPRATROPIUM/ALBUTEROL 0.5-3(2.5)MG/3ML NEB HHN PRN (01:21)
[2019-06-24] MEDS: SUCRALFATE 1 G/10 ML UDC PO SCH ×4 (05:51→22:30)
[2019-06-24] MEDS: PIPERACILLIN/TAZOBACTAM 3.375 G in DEXT 5% WATER 100 ML IV SCH ×3 (05:51→17:32)
[2019-06-24] MEDS: BLOOD SUGAR DIAGNOSTIC STRIP TEST SCH ×4 (05:52→21:00)
[2019-06-24 07:36] LABS: BASOPHILS % 0.4 % (0.0-2.0); EOSINOPHILS % 1.9 % (0.0-5.0); HEMATOCRIT. 23.3 % (42.0-52.0); LYMPHOCYTES % 8.5 % (20.0-50.0); MEAN CORPUSCULAR HEMOGLOBIN 30.8 pg (28.0-32.0); MEAN CORPUSCULAR VOLUME 89.3 fL (80.0-94.0); MEAN PLATELET VOLUME 10.5 fl (7.4-10.4); MONOCYTES % 5.2 % (2.0-8.0); PLATELET 132 x1000/uL (130-400); RED BLOOD CELL COUNT 2.61 mill/uL (4.7-6.1); RED CELL DISTRIBUTION WIDTH 14.3 % (11.6-14.6)
[2019-06-24] MEDS: MIDODRINE HCL 5MG TABLET PO SCH ×4 (09:08→18:56)
[2019-06-24] MEDS: CLOPIDOGREL 75MG TABLET PO SCH (09:08)
[2019-06-24] MEDS: PANTOPRAZOLE SODIUM 40 MG/VIAL IV SCH ×2 (09:09→22:30)
[2019-06-24] MEDS: CARVEDILOL 3.125 MG TABLET PO SCH ×2 (09:09→22:31)
[2019-06-24] MEDS: INSULIN LISPRO 100 UNITS/ML SUBCUT SCH ×4 (09:11→22:35)
[2019-06-24] MEDS ORDERED: FUROSEMIDE 40MG TABLET PO NR (09:30)
[2019-06-24] MEDS: VANCOMYCIN 1500MG in DEXTROSE 5% WATER 250ML IV SCH (10:06)
[2019-06-24] MEDS: SODIUM CHLORIDE 0.45% 1,000 ML IV SCH (17:33)
[2019-06-25] VITALS (11 sets, daily range): BP systolic 83–128; BP diastolic 51–68
[2019-06-25] MEDS: PIPERACILLIN/TAZOBACTAM 3.375 G in DEXT 5% WATER 100 ML IV SCH ×5 (05:22→17:20)
[2019-06-25] MEDS: SUCRALFATE 1 G/10 ML UDC PO SCH ×4 (06:01→21:33)
[2019-06-25] MEDS: BLOOD SUGAR DIAGNOSTIC STRIP TEST SCH ×4 (06:02→21:34)
[2019-06-25] MEDS: INSULIN LISPRO 100 UNITS/ML SUBCUT SCH ×4 (07:36→21:32)
[2019-06-25 07:39] LABS: BASOPHILS % 0.2 % (0.0-2.0); EOSINOPHILS % 1.9 % (0.0-5.0); HEMATOCRIT. 24.2 % (42.0-52.0); HEMOGLOBIN. 8.3 g/dL (14.0-18.0); LYMPHOCYTES % 8.7 % (20.0-50.0); MEAN CORPUSCULAR HEMOGLOBIN 30.9 pg (28.0-32.0); MEAN CORPUSCULAR VOLUME 90.2 fL (80.0-94.0); MEAN PLATELET VOLUME 10.7 fl (7.4-10.4); MONOCYTES % 5.6 % (2.0-8.0); NEUTROPHILS % 83.6 % (40.0-76.0); PLATELET 129 x1000/uL (130-400); RED BLOOD CELL COUNT 2.68 mill/uL (4.7-6.1); RED CELL DISTRIBUTION WIDTH 14.6 % (11.6-14.6)
[2019-06-25] MEDS: VANCOMYCIN 1500MG in DEXTROSE 5% WATER 250ML IV SCH (07:58)
[2019-06-25] MEDS: CLOPIDOGREL 75MG TABLET PO SCH (08:01)
[2019-06-25] MEDS: PANTOPRAZOLE SODIUM 40 MG/VIAL IV SCH ×2 (08:01→21:33)
[2019-06-25] MEDS: FUROSEMIDE 40MG/4ML VIAL IVP SCH (08:01)
[2019-06-25] MEDS: CARVEDILOL 3.125 MG TABLET PO SCH ×2 (08:01→21:33)
[2019-06-25] MEDS: MIDODRINE HCL 5MG TABLET PO SCH ×3 (08:01→17:21)
[2019-06-25] MEDS ORDERED: BISACODYL 5MG TABLET PO PRN (09:00)
[2019-06-25] MEDS ORDERED: SORBITOL 70% SOLN 30ML PO PRN (09:00)
[2019-06-25] MEDS ORDERED: MINERAL OIL ENEMA 133ML PR NR (09:00)
[2019-06-25] MEDS: NYSTATIN 100,000 UNITS/ML 5ML UDC SSW SCH ×2 (11:57→17:20)
[2019-06-25] MEDS: SODIUM CHLORIDE 0.45% 1,000 ML IV SCH (13:29)
[2019-06-25] MEDS: ATORVASTATIN CALCIUM 40MG TABLET PO SCH (21:33)
[2019-06-26] VITALS (12 sets, daily range): BP systolic 95–119; BP diastolic 47–68
[2019-06-26] MEDS: NYSTATIN 100,000 UNITS/ML 5ML UDC SSW SCH ×5 (00:11→23:25)
[2019-06-26] MEDS: PIPERACILLIN/TAZOBACTAM 3.375 G in DEXT 5% WATER 100 ML IV SCH ×5 (00:11→23:25)
[2019-06-26] MEDS: SUCRALFATE 1 G/10 ML UDC PO SCH ×4 (05:43→21:18)
[2019-06-26 06:28] LABS: BASOPHILS % 0.4 % (0.0-2.0); EOSINOPHILS % 2.4 % (0.0-5.0); HEMATOCRIT. 23.3 % (42.0-52.0); HEMOGLOBIN. 7.9 g/dL (14.0-18.0); LYMPHOCYTES % 10.8 % (20.0-50.0); MEAN CORPUSCULAR HEMOGLOBIN 30.3 pg (28.0-32.0); MEAN CORPUSCULAR VOLUME 89.4 fL (80.0-94.0); MEAN PLATELET VOLUME 10.6 fl (7.4-10.4); MONOCYTES % 5.1 % (2.0-8.0); NEUTROPHILS % 81.3 % (40.0-76.0); PLATELET 158 x1000/uL (130-400); RED BLOOD CELL COUNT 2.61 mill/uL (4.7-6.1); RED CELL DISTRIBUTION WIDTH 14.8 % (11.6-14.6)
[2019-06-26] MEDS: BLOOD SUGAR DIAGNOSTIC STRIP TEST SCH ×4 (06:53→21:19)
[2019-06-26] MEDS: CARVEDILOL 3.125 MG TABLET PO SCH ×2 (09:06→21:19)
[2019-06-26] MEDS: CLOPIDOGREL 75MG TABLET PO SCH (09:06)
[2019-06-26] MEDS: PANTOPRAZOLE SODIUM 40 MG/VIAL IV SCH ×2 (09:07→21:18)
[2019-06-26] MEDS: FUROSEMIDE 40MG/4ML VIAL IVP SCH (09:07)
[2019-06-26] MEDS: MIDODRINE HCL 5MG TABLET PO SCH ×3 (09:07→17:14)
[2019-06-26] MEDS: INSULIN LISPRO 100 UNITS/ML SUBCUT SCH ×4 (09:07→21:20)
[2019-06-26] MEDS: VANCOMYCIN 1500MG in DEXTROSE 5% WATER 250ML IV SCH (10:00)
[2019-06-26] MEDS: SODIUM CHLORIDE 0.45% 1,000 ML IV SCH (11:29)
[2019-06-26] MEDS ORDERED: POTASSIUM CHLORIDE 20MEQ TABLET SR PO NR (11:45)
[2019-06-26] MEDS: ATORVASTATIN CALCIUM 40MG TABLET PO SCH (21:18)
[2019-06-27] VITALS (12 sets, daily range): BP systolic 95–134; BP diastolic 51–83
[2019-06-27] MEDS: SODIUM CHLORIDE 0.45% 1,000 ML IV SCH (05:45)
[2019-06-27] MEDS: PIPERACILLIN/TAZOBACTAM 3.375 G in DEXT 5% WATER 100 ML IV SCH ×4 (06:16→23:48)
[2019-06-27] MEDS: SUCRALFATE 1 G/10 ML UDC PO SCH ×4 (06:35→21:31)
[2019-06-27] MEDS: BLOOD SUGAR DIAGNOSTIC STRIP TEST SCH ×4 (06:35→21:31)
[2019-06-27] MEDS: NYSTATIN 100,000 UNITS/ML 5ML UDC SSW SCH ×4 (06:35→23:48)
[2019-06-27 06:44] LABS: BASOPHILS % 0.5 % (0.0-2.0); EOSINOPHILS % 1.8 % (0.0-5.0); HEMOGLOBIN. 8.4 g/dL (14.0-18.0); LYMPHOCYTES % 11.3 % (20.0-50.0); MEAN CORPUSCULAR HEMOGLOBIN 30.2 pg (28.0-32.0); MEAN CORPUSCULAR VOLUME 89.4 fL (80.0-94.0); MEAN PLATELET VOLUME 10.7 fl (7.4-10.4); MONOCYTES % 5.8 % (2.0-8.0); NEUTROPHILS % 80.6 % (40.0-76.0); PLATELET 189 x1000/uL (130-400); RED BLOOD CELL COUNT 2.79 mill/uL (4.7-6.1); RED CELL DISTRIBUTION WIDTH 14.9 % (11.6-14.6)
[2019-06-27] MEDS: CLOPIDOGREL 75MG TABLET PO SCH (08:36)
[2019-06-27] MEDS: MIDODRINE HCL 5MG TABLET PO SCH ×3 (08:36→17:00)
[2019-06-27] MEDS: PANTOPRAZOLE SODIUM 40 MG/VIAL IV SCH ×2 (08:36→21:29)
[2019-06-27] MEDS: FUROSEMIDE 40MG/4ML VIAL IVP SCH (08:36)
[2019-06-27] MEDS: INSULIN LISPRO 100 UNITS/ML SUBCUT SCH ×4 (08:37→21:32)
[2019-06-27] MEDS: CARVEDILOL 3.125 MG TABLET PO SCH ×2 (08:37→21:31)
[2019-06-27] MEDS: VANCOMYCIN 1500MG in DEXTROSE 5% WATER 250ML IV SCH (09:32)
[2019-06-27] MEDS ORDERED: POTASSIUM CHLORIDE 20MEQ TABLET SR PO SCH (10:30)
[2019-06-27] MEDS ORDERED: LORAZEPAM 2MG/ML CPJ IV PRN (16:15)
[2019-06-27] MEDS: ATORVASTATIN CALCIUM 40MG TABLET PO SCH (21:30)
[2019-06-28] VITALS (12 sets, daily range): BP systolic 103–131; BP diastolic 55–72
[2019-06-28] MEDS: SODIUM CHLORIDE 0.45% 1,000 ML IV SCH ×2 (01:50→23:46)
[2019-06-28] MEDS: IPRATROPIUM/ALBUTEROL 0.5-3(2.5)MG/3ML NEB HHN PRN (02:21)
[2019-06-28] MEDS: PIPERACILLIN/TAZOBACTAM 3.375 G in DEXT 5% WATER 100 ML IV SCH ×4 (06:02→23:46)
[2019-06-28] MEDS: SUCRALFATE 1 G/10 ML UDC PO SCH ×4 (06:02→21:07)
[2019-06-28] MEDS: NYSTATIN 100,000 UNITS/ML 5ML UDC SSW SCH ×4 (06:03→23:49)
[2019-06-28] MEDS: BLOOD SUGAR DIAGNOSTIC STRIP TEST SCH ×4 (06:07→21:08)
[2019-06-28 07:14] LABS: BASOPHILS % 0.4 % (0.0-2.0); EOSINOPHILS % 2.7 % (0.0-5.0); HEMATOCRIT. 25.2 % (42.0-52.0); HEMOGLOBIN. 8.5 g/dL (14.0-18.0); LYMPHOCYTES % 9.3 % (20.0-50.0); MEAN CORPUSCULAR HEMOGLOBIN 29.9 pg (28.0-32.0); MEAN CORPUSCULAR VOLUME 88.9 fL (80.0-94.0); MEAN PLATELET VOLUME 10.3 fl (7.4-10.4); MONOCYTES % 7.1 % (2.0-8.0); NEUTROPHILS % 80.5 % (40.0-76.0); PLATELET 217 x1000/uL (130-400); RED BLOOD CELL COUNT 2.83 mill/uL (4.7-6.1); RED CELL DISTRIBUTION WIDTH 14.6 % (11.6-14.6)
[2019-06-28] MEDS: POTASSIUM CHLORIDE 20MEQ TABLET SR PO SCH (08:05)
[2019-06-28] MEDS: INSULIN LISPRO 100 UNITS/ML SUBCUT SCH ×4 (08:05→21:09)
[2019-06-28] MEDS: VANCOMYCIN 1500MG in DEXTROSE 5% WATER 250ML IV SCH (08:06)
[2019-06-28] MEDS: FUROSEMIDE 40MG/4ML VIAL IVP SCH (08:06)
[2019-06-28] MEDS: MIDODRINE HCL 5MG TABLET PO SCH ×3 (08:06→17:04)
[2019-06-28] MEDS: PANTOPRAZOLE SODIUM 40 MG/VIAL IV SCH ×2 (08:06→21:07)
[2019-06-28] MEDS: CLOPIDOGREL 75MG TABLET PO SCH (08:06)
[2019-06-28] MEDS: CARVEDILOL 3.125 MG TABLET PO SCH ×2 (08:10→21:08)
[2019-06-28] MEDS ORDERED: POTASSIUM CHLORIDE 20MEQ/PACKET PO NR (10:30)
[2019-06-28] MEDS: ATORVASTATIN CALCIUM 40MG TABLET PO SCH (21:08)
[2019-06-29] VITALS (9 sets, daily range): BP systolic 115–143; BP diastolic 55–72
[2019-06-29] MEDS: PIPERACILLIN/TAZOBACTAM 3.375 G in DEXT 5% WATER 100 ML IV SCH ×2 (05:20→13:12)
[2019-06-29] MEDS: NYSTATIN 100,000 UNITS/ML 5ML UDC SSW SCH ×2 (05:21→13:12)
[2019-06-29] MEDS: BLOOD SUGAR DIAGNOSTIC STRIP TEST SCH ×3 (06:11→16:38)
[2019-06-29] MEDS: SUCRALFATE 1 G/10 ML UDC PO SCH ×2 (06:11→13:12)
[2019-06-29] MEDS: FUROSEMIDE 40MG/4ML VIAL IVP SCH (09:10)
[2019-06-29] MEDS: CLOPIDOGREL 75MG TABLET PO SCH (09:10)
[2019-06-29] MEDS: PANTOPRAZOLE SODIUM 40 MG/VIAL IV SCH (09:10)
[2019-06-29] MEDS: MIDODRINE HCL 5MG TABLET PO SCH ×2 (09:11→13:12)
[2019-06-29] MEDS: POTASSIUM CHLORIDE 20MEQ TABLET SR PO SCH (09:11)
[2019-06-29] MEDS: CARVEDILOL 3.125 MG TABLET PO SCH (09:11)
[2019-06-29] MEDS: INSULIN LISPRO 100 UNITS/ML SUBCUT SCH ×2 (09:12→13:12)
[2019-06-29] MEDS: VANCOMYCIN 1500MG in DEXTROSE 5% WATER 250ML IV SCH (13:11)
== END 2019-06-29 16:40 | disposition home health service (06) | DRG 871 ==
LOC: ER 14:41 → EDBEDREQ 18:11 → EDBEDREQSVC 18:11 → EDBEDREQTM 18:11 → EDBEDREQ 19:26 → ENRESERV 21:37 → CVICU 22:00 → 3WST 06-23 14:48
PROVIDERS: ADMIT Internal Medicine; ATTEND Internal Medicine
PROC: 30233N1 Transfusion of Nonautologous Red Blood Cells into Peripheral Vein, Percutaneous Approach (ICD-10-PCS; 2019-06-19)
PROC: 0DB68ZX Excision of Stomach, Via Natural or Artificial Opening Endoscopic, Diagnostic (ICD-10-PCS; principal; 2019-06-21)
DX: A41.9 Sepsis, unspecified organism (principal); I21.4 Non-ST elevation (NSTEMI) myocardial infarction; E43 Unspecified severe protein-calorie malnutrition; N17.0 Acute kidney failure with tubular necrosis; R57.0 Cardiogenic shock; G93.41 Metabolic encephalopathy; K29.71 Gastritis, unspecified, with bleeding; K29.81 Duodenitis with bleeding; K25.4 Chronic or unspecified gastric ulcer with hemorrhage; J69.0 Pneumonitis due to inhalation of food and vomit; I13.0 Hypertensive heart and chronic kidney disease with heart failure and stage 1 through stage 4 chronic kidney disease, or unspecified chronic kidney disease; I50.22 Chronic systolic (congestive) heart failure; I48.20 Chronic atrial fibrillation, unspecified; I25.5 Ischemic cardiomyopathy; D86.0 Sarcoidosis of lung; E11.22 Type 2 diabetes mellitus with diabetic chronic kidney disease; E87.8 Other disorders of electrolyte and fluid balance, not elsewhere classified; N18.9 Chronic kidney disease, unspecified; E87.6 Hypokalemia; I49.3 Ventricular premature depolarization; I25.10 Atherosclerotic heart disease of native coronary artery without angina pectoris; I34.0 Nonrheumatic mitral (valve) insufficiency; D69.6 Thrombocytopenia, unspecified; E78.5 Hyperlipidemia, unspecified; D50.0 Iron deficiency anemia secondary to blood loss (chronic); Z90.49 Acquired absence of other specified parts of digestive tract; Z95.818 Presence of other cardiac implants and grafts; Z79.899 Other long term (current) drug therapy; Z68.30 Body mass index [BMI] 30.0-30.9, adult
CPT/HCPCS: 36415; 36556; 36600; 71045; 71250; 74174; 78580; 80048; 80053; 80061; 80202; 81003; 82140; 82375; 82550; 82553; 82728; 82805; 82962; 83036; 83540; 83550; 83605; 83735; 83880; 84145; 84443; 84484; 85014; 85018; 85025; 85044; 85362; 85379; 85384; 86850; 86900; 86920; 87804; 88305; 88312; 88313; 92610; 93005; 93306; 93970; 94640; 97110; 97116; 97162; 97530; 97535; 99291; C9113; J0153; J0610; J1200; J1815; J1940; J2060; J2270; J2370; J2405; J2543; J2765; J3370; J3475; J3490; J7050; J7060; P9016; P9041; Q9967